=== PATIENT | female | born 1945 | race Caucasian/White ===

== ENCOUNTER 2017-07-20 17:23 | Inpatient (IN) | payer MEDICARE, OTHER ==
[~2017-07-20] VITALS: Ht 165.1 cm; Wt 63.5 kg
--- NOTE | 2017-07-22 18:00 | NUR ---
Received a 71 year old female patient from [facility] transported by 2 EMT staff on a gurney with vital signs BP: 112/52, [place]: 88, RR: 16 oxygen saturation 92 percent on room air and temperature of 98.1 F. patient was admitted with diagnoses of right hip ORIF, Acute Respiratory Failure, dizziness, contraction, premature ventricular, CHF, Elevated troponin. All admission orders were clarified and verified with Dr. Jordon Burns orders noted and carried out. patient oriented to placed and hospital policy's. All needs attended and anticipated. call light placed within reach. Will endorse to incoming shift.
[2017-07-22] MEDS ORDERED: ALEN70TA45 PO (18:38)
[2017-07-22] MEDS ORDERED: AMOX500C2 PO (18:40)
[2017-07-22] MEDS ORDERED: ASPI81TA31 PO (18:42)
[2017-07-22] MEDS ORDERED: ATOR40TA PO (18:51)
[2017-07-22] MEDS ORDERED: BENAZEPRIL HCL 10 MG (18:55)
[2017-07-22] MEDS ORDERED: CARV25TA2 PO (18:56)
[2017-07-22] MEDS ORDERED: CHLO473M3 MM (18:57)
[2017-07-22] MEDS ORDERED: ESCI10TA55 PO (18:58)
[2017-07-22] MEDS ORDERED: ICOS1CAP PO (18:59)
[2017-07-22] MEDS ORDERED: SACU1TAB7 PO (19:00)
[2017-07-22 19:30] VITALS: BP 112/52
--- NOTE | 2017-07-22 19:45 | NUR ---
MED RECON DONE. PICTURE ON RIGHT HIP SURGICAL INCISION WAS NOT TAKEN, FIRST DRESSING CHANGE NEEDS TO BE PERFORMED BY SURGEON.
[2017-07-22 20:00] VITALS: BP 99/50
[2017-07-22] MEDS ORDERED: BISACODYL 10 MG SUPP.RECT RC PRN (20:00)
--- NOTE | 2017-07-22 20:00 | NUR ---
Received pt on bed, alert, awake and oriented x4. Able to make needs known. Pleasant, calm and cooperative to care. No acute distress noted. No complaints of pain or discomfort. No SOB noted. Call light within reach. All needs attended
[2017-07-22] MEDS: DOCUSATE SODIUM 100 MG CAPSULE PO SCH (21:20)
[2017-07-22] MEDS: ATORVASTATIN 40 MG TABLET PO SCH (21:20)
[2017-07-22] MEDS: TEMAZEPAM 7.5 MG CAPSULE PO PRN (21:21)
[2017-07-23 07:00] VITALS: BP 125/59
--- NOTE | 2017-07-23 07:10 | NUR ---
Pt slept well throughout the shift. No acute distress noted. No complaints of pain. Kept clean, dry and comfortable. Call light within reach. All needs attended.
--- NOTE | 2017-07-23 07:15 | NUR ---
Received patient awake, up on bed, alert, verbally responsive, not in any form of acute distress. She denies any pain or discomfort at this time. Call light placed within reach. Reminded to use call light for assistance with verbalized understanding.
[2017-07-23 08:14] LABS: THYROID STIMULATING HORMONE 2.188 mIU/mL (0.358-3.740)
[2017-07-23 08:25] LABS: BASOPHILS % (AUTO) 0.4 % (0.0-2.0); EOSINOPHILS # (AUTO) 0.2 K/uL (0.0-0.7); EOSINOPHILS % (AUTO) 1.4 % (0.0-7.0); HEMATOCRIT 30.2 % (31.2-41.9); HEMOGLOBIN 10.4 g/dL (10.9-14.3); LYMPHOCYTES # (AUTO) 0.8 K/uL (20.0-40.0); LYMPHOCYTES % (AUTO) 7.6 % (20.5-51.5); MEAN CORPUSCULAR HEMOGLOBIN 30.5 uug (24.7-32.8); MEAN CORPUSCULAR HGB CONC 35 g/dL (32.3-35.6); MEAN CORPUSCULAR VOLUME 88.3 fL (75.5-95.3); MONOCYTES # (AUTO) 0.8 K/uL (2.0-10.0); MONOCYTES % (AUTO) 7.6 % (0.0-11.0); NEUTROPHILS # (AUTO) 9.1 K/uL (1.8-8.9); PLATELET COUNT (AUTO) 239 K/uL (179-408); RED BLOOD CELL COUNT(AUTO) 3.42 MIL/uL (3.63-4.92)
[2017-07-23 08:35] LABS: ALANINE AMINOTRANSFERASE 17 U/L (14-59); ALKALINE PHOSPHATASE 72 U/L (50-136); ASPARTATE AMINOTRANSFERASE 42 U/L (15-37); BILIRUBIN,TOTAL 0.8 mg/dL (0.2-1.0); CARBON DIOXIDE 26 mmol/L (21-32); CHLORIDE 106 mmol/L (98-107); CREATININE 0.6 mg/dL (0.6-1.3); GLUCOSE 100 mg/dL (74-106); PHOSPHOROUS 2.4 mg/dL (2.5-4.9); TOTAL PROTEIN, SERUM 6.2 g/dL (6.4-8.2); UREA NITROGEN, BLOOD 14 mg/dL (7-18)
[2017-07-23] MEDS ORDERED: Medication Not On Formulary EA (Icosapent Ethyl (Vascepa) 1 GM) PO SCH (09:00)
[2017-07-23] MEDS: ASPIRIN 81 MG TAB.CHEW PO SCH (10:32)
[2017-07-23] MEDS: CARVEDILOL 25 MG TABLET PO SCH ×2 (10:32→17:00)
[2017-07-23] MEDS: MULTIVITAMINS,THERAPEUTIC TABLET PO SCH (10:32)
[2017-07-23] MEDS: ESCITALOPRAM OXALATE 10 MG TABLET PO SCH (10:32)
[2017-07-23] MEDS: BENAZEPRIL HCL 10 MG TABLET PO SCH (10:32)
[2017-07-23] MEDS: CHLORHEXIDINE GLUCONATE 15 ML MOUTHWASH MM SCH ×2 (10:33→17:00)
[2017-07-23] MEDS ORDERED: [UNRECOGNIZED DRUG - OTHER] PO SCH (11:40)
[2017-07-23] MEDS ORDERED: VALSARTAN PO SCH (11:40)
[2017-07-23] MEDS ORDERED: SACUBITRIL PO SCH (11:40)
[2017-07-23 13:07] LABS: *BILIRUBIN,URIN NEGATIVE (NEGATIVE); *BLOOD, URINE 2+ (NEGATIVE); *COLOR,URINE AMBER (YELLOW); *KETONES,URINE NEGATIVE (NEGATIVE); *PROTEIN,URINE TRACE (NEGATIVE); *UROBILINOGEN,URINE 0.2 E.U./dl (NORMAL); LEUKOCYTE ESTERASE ,URINE TRACE (NEGATIVE); NITRITE, URINE NEGATIVE (NEGATIVE); PH,URINE 7.5 (5.0-8.0); UGLUCOSE NEGATIVE (NEGATIVE)
[2017-07-23 13:22] LABS: *CLARITY,URINE HAZY (CLEAR)
[2017-07-23 13:23] LABS: BACTERIA,URINE NONE SEEN /HPF (NONE SEEN); MUCUS,URINE FEW /LPF (0-FEW); SQUAMOUS EPITHELIAL CELL,UR FEW /HPF (NONE SEEN); YEAST,URINE MANY /HPF (NONE SEEN)
[2017-07-23] MEDS ORDERED: NEUTRA PHOS PACKET PO ONE (16:15)
[2017-07-23] MEDS: VASCEPA 1 GM PO SCH (17:00)
[2017-07-23] MEDS: [UNRECOGNIZED DRUG - OTHER] PO SCH (17:00)
--- NOTE | 2017-07-23 18:50 | NUR ---
Notified Dr. Ruvalcaba regarding patient refusing Entresto that her PCP already discontinued such med. Dr. Ruvalcaba ordered to discontinue Entresto, order carried out and patient made aware.
--- NOTE | 2017-07-23 19:00 | NUR ---
Dr. Ruvalcaba came to see patient, informed him of patient's refusal of taking Vescapa and neutraphos with no new order. Also notified Dr. Ruvalcaba regarding holding coreg for low BP with no new order, continue to monitor.
--- NOTE | 2017-07-23 19:30 | NUR ---
Received patient in bed. Daughter at bedside. Alert and verbally responsive. Able to make needs known. Denies any pain and discomfort. No acute distress. No SOB. Kept clean and dry. All needs attended to promptly. call light within reach. Will continue to monitor.
[2017-07-23] MEDS: ATORVASTATIN 40 MG TABLET PO SCH (20:16)
[2017-07-23] MEDS: DOCUSATE SODIUM 100 MG CAPSULE PO SCH (20:20)
[2017-07-23] MEDS ORDERED: FLUCONAZOLE 100 MG TABLET ONE (21:23)
--- NOTE | 2017-07-23 21:23 | NUR ---
JOANA BERNARD EXECUTED ON [facility] @ 2022.
[2017-07-23 22:07] VITALS: BP 111/46
[2017-07-24] MEDS: FLUCONAZOLE 100 MG TABLET PO SCH ×2 (00:26→09:51)
--- NOTE | 2017-07-24 06:57 | NUR ---
Patient slept comfortably throughout the night. Alert and verbally responsive. Able to make needs known. Denies any pain and discomfort. No acute distress. No SOB. Kept clean and dry. Assisted to the bathroom. Tolerated well. Surgical site kept clean and dry. All needs attended to promptly. Call light within reach. Will continue to monitor.
--- NOTE | 2017-07-24 07:45 | NUR ---
Pt SBAR report received, near bedside, board updated, and plan for today discussed. Pt sitting up semi-fowlers in bed, awake, alert, and oriented, with no c/o pain or acute distress noted at this time. Pt reports sleeping well last night. Call light and personal items placed within reach. Pt reminded to use call light for assistance with toileting needs. All safety and comfort measures met at this time. Will continue to monitor.
[2017-07-24 08:40] VITALS: BP 112/52
[2017-07-24] MEDS: CARVEDILOL 25 MG TABLET PO SCH ×2 (09:00→17:07)
--- NOTE | 2017-07-24 09:00 | NUR ---
Pt and daughter requested to have Coreg dose held, again due to bp of 117/57, pulse 65, and taking alternate additional bp medication per MD orders. Will continue to monitor pt.
[2017-07-24] MEDS: ASPIRIN 81 MG TAB.CHEW PO SCH (09:51)
[2017-07-24] MEDS: MULTIVITAMINS,THERAPEUTIC TABLET PO SCH (09:51)
[2017-07-24] MEDS: ESCITALOPRAM OXALATE 10 MG TABLET PO SCH (09:52)
[2017-07-24] MEDS: [UNRECOGNIZED DRUG - OTHER] PO SCH ×2 (09:52→17:04)
[2017-07-24] MEDS: VASCEPA 1 GM PO SCH ×2 (09:52→17:04)
--- NOTE | 2017-07-24 10:05 | NUR ---
Pt assessed to be in no distress, discomfort, or pain. Pt denies any complaints of dizziness or lightheadedness. BP reassessed 108/53, and pulse of 76. Will continue to monitor Pt status closely.
[2017-07-24] MEDS: BENAZEPRIL HCL 10 MG TABLET PO SCH (10:09)
[2017-07-24] MEDS: CHLORHEXIDINE GLUCONATE 15 ML MOUTHWASH MM SCH ×2 (10:19→17:05)
--- NOTE | 2017-07-24 18:20 | NUR ---
Pt sitting comfortably in semi-fowlers with daughter visiting at bedside. Pt assessed to be in no distresss and denies any pain at this time. All safety and comfort measures met. Pt compliant with all routine medication administration throughout shift. Last Bp 119/52, pulse 72 plan of care discussed with Pt and Coreg BP medication administered. Will continue to monitor the Pt and endorse to overnight houseperson.
--- NOTE | 2017-07-24 19:30 | NUR ---
PT ALERT AND ORIENTED IN BED. NO DISTRESS NOTED. COMPLIANT WITH NURSING CARE. DRESSING ON R HIP CLEAN AND INTACT. SAFETY MAINTAINED. CALL LIGHT WITHIN REACH. WILL CONTINUE TO MONITOR.
[2017-07-24] MEDS: ATORVASTATIN 40 MG TABLET PO SCH (20:35)
[2017-07-24] MEDS: DOCUSATE SODIUM 100 MG CAPSULE PO SCH (20:36)
[2017-07-24 20:39] VITALS: BP 107/69
[2017-07-24] MEDS: TEMAZEPAM 7.5 MG CAPSULE PO PRN (20:40)
--- NOTE | 2017-07-25 06:52 | NUR ---
PT RESTING IN BED. NO DISTRESS NOTED. SLEPT WELL THROUGHOUT THE NIGHT. CLEAN AND DRY. DRESSING INTACT. SAFETY MAINTAINED. CALL LIGHT WITHIN REACH.
[2017-07-25] MEDS: ESCITALOPRAM OXALATE 10 MG TABLET PO SCH (09:00)
[2017-07-25] MEDS: CHLORHEXIDINE GLUCONATE 15 ML MOUTHWASH MM SCH ×2 (09:00→16:38)
[2017-07-25] MEDS: [UNRECOGNIZED DRUG - OTHER] PO SCH ×2 (09:00→16:38)
[2017-07-25] MEDS: VASCEPA 1 GM PO SCH ×2 (09:00→16:38)
[2017-07-25] MEDS: AMOXICILLIN TRIHYDRATE 500 MG CAPSULE PO SCH ×3 (10:37→16:38)
[2017-07-25] MEDS: ASPIRIN 81 MG TAB.CHEW PO SCH (10:37)
[2017-07-25] MEDS: BENAZEPRIL HCL 10 MG TABLET PO SCH (10:38)
[2017-07-25] MEDS: MULTIVITAMINS,THERAPEUTIC TABLET PO SCH (10:38)
[2017-07-25] MEDS: CARVEDILOL 25 MG TABLET PO SCH ×2 (10:38→16:42)
[2017-07-25] MEDS: FLUCONAZOLE 100 MG TABLET PO SCH (10:38)
--- NOTE | 2017-07-25 19:30 | NUR ---
Received pt in bed, awake alert and oriented. Family members and bedside. No acute distress noted. Denies pain or discomfort at this time. All safety measures and fall precautions maintained. Call light within reach. Will continue to monitor.
[2017-07-25] MEDS: DOCUSATE SODIUM 100 MG CAPSULE PO SCH (20:55)
[2017-07-25] MEDS: ATORVASTATIN 40 MG TABLET PO SCH (20:55)
[2017-07-25 22:00] VITALS: BP 132/60
[2017-07-25] MEDS: TEMAZEPAM 7.5 MG CAPSULE PO PRN (23:52)
--- NOTE | 2017-07-26 06:56 | NUR ---
Pt slept throughout the shift comfortably, waking up intermittently to use restroom. Assisted to use restroom with standby assistance and FWW. No acute distress noted. Denies pain or discomfort at this time. Tolerated all medications well. Kept clean and dry. Call light within reach. All needs met. All safety measures and fall precautions maintained. Will continue to monitor.
[2017-07-26 07:30] VITALS: BP 119/62
--- NOTE | 2017-07-26 07:47 | NUR ---
SBAR RECEIVED FROM ACCESS RN, PATIENT NOTED LYING IN BED AWAKE, NO SIGNS OF DISTRESS, NO COMPLAINTS OF PAIN, CALL LIGHT IN REACH, BED LOCKED AND IN LOWEST POSITION, STATES ALL NEEDS ARE MET AT THIS TIME
[2017-07-26] MEDS: CYANOCOBALAMIN 1000 MCG/ML VIAL IM SCH (08:28)
[2017-07-26] MEDS: FLUCONAZOLE 100 MG TABLET PO SCH (08:29)
[2017-07-26] MEDS: MULTIVITAMINS,THERAPEUTIC TABLET PO SCH (08:29)
[2017-07-26] MEDS: BENAZEPRIL HCL 10 MG TABLET PO SCH (08:29)
[2017-07-26] MEDS: ESCITALOPRAM OXALATE 10 MG TABLET PO SCH (08:29)
[2017-07-26] MEDS: ASPIRIN 81 MG TAB.CHEW PO SCH (08:29)
[2017-07-26] MEDS: AMOXICILLIN TRIHYDRATE 500 MG CAPSULE PO SCH ×3 (08:29→17:19)
[2017-07-26] MEDS: CARVEDILOL 6.25 MG TABLET PO SCH ×2 (08:30→17:20)
[2017-07-26] MEDS: VASCEPA 1 GM PO SCH ×2 (08:30→17:19)
[2017-07-26] MEDS: [UNRECOGNIZED DRUG - OTHER] PO SCH ×2 (08:30→17:19)
[2017-07-26] MEDS: CHLORHEXIDINE GLUCONATE 15 ML MOUTHWASH MM SCH ×2 (08:30→17:21)
[2017-07-26] MEDS ORDERED: CARVEDILOL 25 MG TABLET PO SCH (09:00)
--- NOTE | 2017-07-26 20:15 | NUR ---
RECIEVED PT'S A/A/O X4 DENIED OF PAIN OR ANY DISCOMFORT,USING IPAD ON BED;ASSISTED FOR PM CARE ON BED;CLEAN AND DRY AT THE RIGHT HIP D/S SITE NOTED.KEPT COMFORT TO PT.CALL-LIGHT WITHIN REACH.BED ALARM'S ON.
[2017-07-26] MEDS: DOCUSATE SODIUM 100 MG CAPSULE PO SCH (20:37)
[2017-07-26] MEDS: ATORVASTATIN 40 MG TABLET PO SCH (20:37)
[2017-07-26] MEDS: TEMAZEPAM 7.5 MG CAPSULE PO PRN (21:22)
[2017-07-26 21:46] VITALS: BP 122/57
--- NOTE | 2017-07-27 06:30 | NUR ---
PT SLEPT WELL AT NIGHT,~7 HOURS,DENIED OF PAIN OR ANY DISCOMFORT AT THIS TIME.NO DISTRESS NOTED IN THE SHIFT,PT'S ABLE TO PERFORM ADL'S UNDER SUPERVISION.
[2017-07-27] MEDS: [UNRECOGNIZED DRUG - OTHER] PO SCH ×2 (10:28→17:51)
[2017-07-27] MEDS: VASCEPA 1 GM PO SCH ×2 (10:28→17:51)
[2017-07-27] MEDS: MULTIVITAMINS,THERAPEUTIC TABLET PO SCH (10:28)
[2017-07-27] MEDS: AMOXICILLIN TRIHYDRATE 500 MG CAPSULE PO SCH ×2 (10:28→13:19)
[2017-07-27] MEDS: ESCITALOPRAM OXALATE 10 MG TABLET PO SCH (10:29)
[2017-07-27] MEDS: BENAZEPRIL HCL 10 MG TABLET PO SCH (10:29)
[2017-07-27] MEDS: ASPIRIN 81 MG TAB.CHEW PO SCH (10:29)
[2017-07-27] MEDS: CHLORHEXIDINE GLUCONATE 15 ML MOUTHWASH MM SCH ×2 (10:30→17:53)
[2017-07-27] MEDS: CARVEDILOL 6.25 MG TABLET PO SCH ×2 (10:30→17:52)
[2017-07-27] MEDS: CYANOCOBALAMIN 1000 MCG/ML VIAL IM SCH (10:30)
[2017-07-27] MEDS ORDERED: VORICONAZOLE 200 MG TABLET PO SCH (16:15)
[2017-07-27] MEDS: CEPHALEXIN MONOHYDRATE 250 MG CAPSULE PO SCH ×2 (17:53→21:34)
[2017-07-27] MEDS ORDERED: FLUCONAZOLE 100 MG TABLET PO SCH (18:00)
[2017-07-27 20:00] VITALS: BP 111/62
--- NOTE | 2017-07-27 20:00 | NUR ---
Patient received in bed, awake, alert and was watching TV. Vital signs checked, stable not in respiratory distress. Assisted patient in going in the bathroom through her walker with minimal assist. Patient requested for Jello 1 cup and ate it independently. Call light within reach. Will continue to monitor.
[2017-07-27] MEDS: ATORVASTATIN 40 MG TABLET PO SCH (20:32)
[2017-07-27] MEDS: DOCUSATE SODIUM 100 MG CAPSULE PO SCH (20:32)
[2017-07-28] MEDS ORDERED: ALENDRONATE SODIUM 70 MG TABLET PO SCH (06:30)
[2017-07-28] MEDS: CEPHALEXIN MONOHYDRATE 250 MG CAPSULE PO SCH ×3 (06:34→22:21)
--- NOTE | 2017-07-28 07:19 | NUR ---
Patient complained that she hates going in and out from the toilet. SHe went to the bathroom 4 times the entire shift. Patient stated she's been voiding a lot of times and that she doesn't like it. Explained to the patient that it's normal to be voiding much since she has been drinking a lot of water the entire shift. All due meds given. All needs attended to. Offered pudding and she ate it and appreciated it. Will endorse patient to AM shift nurse.
[2017-07-28 08:56] VITALS: BP 138/76
[2017-07-28] MEDS: VASCEPA 1 GM PO SCH ×2 (09:41→17:40)
[2017-07-28] MEDS: ESCITALOPRAM OXALATE 10 MG TABLET PO SCH (09:41)
[2017-07-28] MEDS: ASPIRIN 81 MG TAB.CHEW PO SCH (09:41)
[2017-07-28] MEDS: [UNRECOGNIZED DRUG - OTHER] PO SCH ×2 (09:41→17:40)
[2017-07-28] MEDS: MULTIVITAMINS,THERAPEUTIC TABLET PO SCH (09:41)
[2017-07-28] MEDS: CHLORHEXIDINE GLUCONATE 15 ML MOUTHWASH MM SCH ×2 (09:41→17:40)
[2017-07-28] MEDS: BENAZEPRIL HCL 10 MG TABLET PO SCH (09:41)
[2017-07-28] MEDS: CYANOCOBALAMIN 1000 MCG/ML VIAL IM SCH (09:41)
[2017-07-28] MEDS: CARVEDILOL 6.25 MG TABLET PO SCH ×2 (09:41→17:41)
--- NOTE | 2017-07-28 14:01 | NUR ---
INTERDISCIPLINARY REHAB SUMMARY
[2017-07-28] MEDS ORDERED: ACETAMINOPHEN 325 MG TABLET PO PRN (15:45)
[2017-07-28] MEDS: DOCUSATE SODIUM 100 MG CAPSULE PO SCH (21:05)
[2017-07-28] MEDS: ATORVASTATIN 40 MG TABLET PO SCH (21:05)
[2017-07-28 22:22] VITALS: BP 109/62
[2017-07-29] MEDS: CEPHALEXIN MONOHYDRATE 250 MG CAPSULE PO SCH ×3 (06:14→21:03)
--- NOTE | 2017-07-29 06:28 | NUR ---
Patient slept comfortably throughout the night. No c/o pain and discomfort. No acute distress. No SOB. Assisted to the bathroom with walker throughout the night. Kept clean and dry. All needs attended to promptly. Call light within reach. Will continue to monitor.
[2017-07-29 08:50] VITALS: BP 117/68
[2017-07-29] MEDS: ASPIRIN 81 MG TAB.CHEW PO SCH (08:50)
[2017-07-29] MEDS: ESCITALOPRAM OXALATE 10 MG TABLET PO SCH (08:50)
[2017-07-29] MEDS: CARVEDILOL 6.25 MG TABLET PO SCH ×2 (08:50→18:10)
[2017-07-29] MEDS: CYANOCOBALAMIN 1000 MCG/ML VIAL IM SCH (08:50)
[2017-07-29] MEDS: MULTIVITAMINS,THERAPEUTIC TABLET PO SCH (08:50)
[2017-07-29] MEDS: [UNRECOGNIZED DRUG - OTHER] PO SCH ×2 (08:51→18:10)
[2017-07-29] MEDS: VASCEPA 1 GM PO SCH ×2 (08:51→18:10)
[2017-07-29] MEDS: BENAZEPRIL HCL 10 MG TABLET PO SCH (08:57)
[2017-07-29] MEDS: CHLORHEXIDINE GLUCONATE 15 ML MOUTHWASH MM SCH ×2 (08:57→17:00)
--- NOTE | 2017-07-29 19:15 | NUR ---
Received patient sitting on chair, watching TV. AAO x4. Family at bedside. No acute distress noted. No c/o pain. Able to make needs known. Safety measures maintained. Call light within reach. Will continue to monitor.
[2017-07-29 19:40] VITALS: BP 127/57
[2017-07-29] MEDS: ATORVASTATIN 40 MG TABLET PO SCH (21:03)
[2017-07-29] MEDS: DOCUSATE SODIUM 100 MG CAPSULE PO SCH (21:03)
[2017-07-30] MEDS: CARVEDILOL 6.25 MG TABLET PO SCH ×2 (08:00→18:00)
[2017-07-30] MEDS: CHLORHEXIDINE GLUCONATE 15 ML MOUTHWASH MM SCH ×2 (09:00→18:03)
[2017-07-30] MEDS: MULTIVITAMINS,THERAPEUTIC TABLET PO SCH (09:00)
[2017-07-30] MEDS: ASPIRIN 81 MG TAB.CHEW PO SCH (09:00)
[2017-07-30] MEDS: VASCEPA 1 GM PO SCH ×2 (09:00→18:03)
[2017-07-30] MEDS: [UNRECOGNIZED DRUG - OTHER] PO SCH ×2 (09:00→18:03)
[2017-07-30] MEDS: BENAZEPRIL HCL 10 MG TABLET PO SCH (09:00)
[2017-07-30] MEDS: ESCITALOPRAM OXALATE 10 MG TABLET PO SCH (09:00)
[2017-07-30] MEDS: CYANOCOBALAMIN 1000 MCG/ML VIAL IM SCH (09:00)
[2017-07-30] MEDS: CEPHALEXIN MONOHYDRATE 250 MG CAPSULE PO SCH ×2 (14:00→21:33)
--- NOTE | 2017-07-30 19:30 | NUR ---
Received patient resting in bed. AAO x4. No acute distress noted. No SOB. No c/o pain or discomfort at this time. Safety measures maintained. Call light within reach. Will continue to monitor.
[2017-07-30 20:00] VITALS: BP 123/58
[2017-07-30] MEDS: DOCUSATE SODIUM 100 MG CAPSULE PO SCH (21:33)
[2017-07-30] MEDS: ATORVASTATIN 40 MG TABLET PO SCH (21:33)
--- NOTE | 2017-07-31 05:33 | NUR ---
Patient slept comfortably t/o the night, with episodes of going to the bathroom a few times with assistance. Able to make needs known. No acute distress noted. No c/o pain. Kept skin clean, dry, and intact. All needs attended. Safety measures maintained. Call light within reach. Continue to monitor.
[2017-07-31] MEDS: CEPHALEXIN MONOHYDRATE 250 MG CAPSULE PO SCH ×2 (06:25→14:50)
[2017-07-31 08:00] VITALS: BP 129/78
[2017-07-31] MEDS: [UNRECOGNIZED DRUG - OTHER] PO SCH (09:31)
[2017-07-31] MEDS: VASCEPA 1 GM PO SCH (09:31)
[2017-07-31] MEDS: ASPIRIN 81 MG TAB.CHEW PO SCH (09:31)
[2017-07-31] MEDS: CYANOCOBALAMIN 1000 MCG/ML VIAL IM SCH (09:31)
[2017-07-31] MEDS: CHLORHEXIDINE GLUCONATE 15 ML MOUTHWASH MM SCH (09:31)
[2017-07-31 09:32] VITALS: BP 129/78
[2017-07-31] MEDS: MULTIVITAMINS,THERAPEUTIC TABLET PO SCH (09:32)
[2017-07-31] MEDS: ESCITALOPRAM OXALATE 10 MG TABLET PO SCH (09:32)
[2017-07-31] MEDS: BENAZEPRIL HCL 10 MG TABLET PO SCH (09:32)
[2017-07-31] MEDS: CARVEDILOL 6.25 MG TABLET PO SCH (09:32)
--- NOTE | 2017-07-31 10:47 | NUR ---
pt seen on rounding. pt is alert and oriented. pt continues to ambulate with modified asssitance. pt is independent. pt will be dishcarged today. vitals stable. no sob. will continue to monitor.
--- NOTE | 2017-07-31 16:31 | NUR ---
pt discharged at 1500. pt vitals stable. no signs of acute distress. pt family given discharge instructions about care in [facility]. pt also given prescriptions to continue at home. pt has home health and dme. no dme upon discharge. pt given exitcare instructions. pt verbalizes understanding. wound site picture taken and placed in chart. belongings list signed and placed in chart.all documents signed. pt left with family
== END 2017-07-31 15:00 | disposition home health service (06) | DRG 559 ==
LOC: UNDOADMIN 17:23
PROVIDERS: ADMIT Physical Medicine & Rehabilitation Pain Medicine; ATTEND Physical Medicine & Rehabilitation Pain Medicine
DX: S72.031D Displaced midcervical fracture of right femur, subsequent encounter for closed fracture with routine healing (principal); I50.23 Acute on chronic systolic (congestive) heart failure; B49 Unspecified mycosis; I31.3 Pericardial effusion (noninflammatory); I05.2 Rheumatic mitral stenosis with insufficiency; E83.39 Other disorders of phosphorus metabolism; I48.0 Paroxysmal atrial fibrillation; D64.9 Anemia, unspecified; I25.5 Ischemic cardiomyopathy; I25.10 Atherosclerotic heart disease of native coronary artery without angina pectoris; N39.0 Urinary tract infection, site not specified; I11.0 Hypertensive heart disease with heart failure; E53.8 Deficiency of other specified B group vitamins; E78.5 Hyperlipidemia, unspecified; I25.2 Old myocardial infarction; W19.XXXD Unspecified fall, subsequent encounter; Z95.0 Presence of cardiac pacemaker; R26.9 Unspecified abnormalities of gait and mobility; K57.90 Diverticulosis of intestine, part unspecified, without perforation or abscess without bleeding; R53.1 Weakness
CPT/HCPCS: 36415; 82306; 83735; 84100; 84443; 85025; 87077; 87086; 92526; 92610; 93005; 97110; 97112; 97116; 97530; 97535; A4663; J3420

== ENCOUNTER 2018-03-22 18:27 | Emergency (ER) | payer MEDICARE, OTHER ==
[~2018-03-22] VITALS: Ht 162.6 cm; Wt 65.8 kg
[~2018-03-22 18:27] MED LIST: ALEN70TA45 PO; AMOX500C2 PO; ASPI81TA31 PO; ATOR40TA PO; BENAZEPRIL HCL 10 MG; CARV25TA2 PO; CHLO473M3 MM; ESCI10TA55 PO; ICOS1CAP PO; SACU1TAB7 PO
[2018-03-22] MEDS ORDERED: ASPI81TA31 PO (18:48)
[2018-03-22] MEDS ORDERED: ALEN70TA45 PO (18:48)
[2018-03-22] MEDS ORDERED: ESCI10TA PO (18:48)
[2018-03-22] MEDS ORDERED: VASCEPA (18:48)
[2018-03-22] MEDS ORDERED: BENA20TA2 PO (18:48)
[2018-03-22] MEDS ORDERED: ATOR20TA PO (18:48)
[2018-03-22] MEDS ORDERED: CARV6.252 PO (18:48)
--- NOTE | 2018-03-22 18:54 | NUR ---
Patient discharged to home in stable conditon. Written and verbal after care instructions given. Patient verbalizes understanding of instructions.pt walks in steady gait. pt breathing normally, no sign of distress.
== END 2018-03-22 18:56 | disposition home or self-care (01) ==
LOC: ER 18:28
DX: J40 Bronchitis, not specified as acute or chronic (principal); E78.5 Hyperlipidemia, unspecified; I10 Essential (primary) hypertension; Z79.82 Long term (current) use of aspirin; Z79.899 Other long term (current) drug therapy
CPT/HCPCS: A4663